=== PATIENT | male | born 1980 | race Caucasian/White ===

== ENCOUNTER 2025-01-28 13:37 | Emergency (ER) | payer MEDICAID ==
[~2025-01-28] VITALS: Ht 170.2 cm; Wt 69.0 kg
[2025-01-28 13:45] VITALS: BP 95/58; TEMP 36.9; O2SAT 100
[2025-01-28 13:48] VITALS: PULSE 101; RESP 20; O2SAT 98
[2025-01-28 15:19] LABS: CLARITY URINE CLEAR (CLEAR); COLOR URINE YELLOW (YELLOW); GLUCOSE URINE NEGATIVE (NEGATIVE); KETONES URINE NEGATIVE (NEGATIVE); LEUKOCYTE ESTERASE URINE NEGATIVE (NEGATIVE); NITRITE URINE NEGATIVE (NEGATIVE); OCCULT BLOOD URINE NEGATIVE (NEGATIVE); PH URINE 5.5 (4.5-8.0); PROTEIN URINE NEGATIVE (NEGATIVE); SPECIFIC GRAVITY URINE 1.025 (1.005-1.030); UROBILINOGEN URINE 0.2 E.U./dL (0.2-1.0)
== END 2025-01-28 17:37 | disposition left against medical advice (07) ==
LOC: ER 13:37
DX: R10.9 Unspecified abdominal pain (principal); Z53.21 Procedure and treatment not carried out due to patient leaving prior to being seen by health care provider
CPT/HCPCS: 81003